=== PATIENT | female | born 2000 | race Caucasian/White ===

== ENCOUNTER 2023-04-28 05:50 | Emergency (ER) | payer BC, SELFPAY ==
[2023-04-28 05:57] VITALS: BP 137/100; PULSE 119; RESP 18; TEMP 36.8; O2SAT 100; BMI 24.0
[2023-04-28] MEDS: ACETAMINOPHEN 500 MG TABLET 1000 MG PO (06:43)
[2023-04-28] MEDS: predniSONE 10 MG TABLET 20 MG PO (06:43)
[2023-04-28 06:46] VITALS: BP 125/84; PULSE 99; RESP 18; TEMP 36.8; O2SAT 100
--- NOTE | 2023-04-28 06:47 | ED.GENADULT ---
HPI - General Adult General Chief complaint: Unspecified Complaint, Adult Stated complaint: Cant move L side of face Time Seen by Provider: 04/28/23 05:54 Source: patient Mode of arrival: ambulatory Limitations: no limitations History of Present Illness HPI narrative: 22-year-old female reports mild upper respiratory infection symptoms with nasal congestion and postnasal drip for the past 5 days. May have had a low-grade fever but was not measuring her temperature at home. Positive sick contact at home. Patient reporting that she became concerned this morning that she started having left ear pain upon awakening that radiated down into the jaw. No difficulty with facial movements, swallowing or speech. She is uncertain what this could be from. 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 She is uncertain if she could have an ear infection or if this is related to her TMJ pain. There was no fever. There is no injury or trauma. She did not try taking any medication to help with her pain. There is no drainage from the ear. She did not attempt to make an appointment to be seen in the clinic or urgent care. No difficulty breathing. Past medical history benign per her report. Her only home medication is p.r.n. ibuprofen. She is a smoker. ROS notable for the HEENT in generalized symptoms as above, otherwise denies times 12 systems. Related Data Previous Rx's Medication Instructions Recorded prednisone 20 mg tablet 20 mg PO DAILY #3 tabs 04/28/23 Allergies Allergy/AdvReac Type Severity Reaction Status Date / Time No Known Drug Allergies Allergy Verified 10/05/22 16:25 [facility] Social History Smoking Status: Never smoker Do you use any of these nicotine containing products: None How often do you have a drink containing alcohol: never AUDIT-C Alcohol total score: 0 Non-prescribed substance use: denies use Exam Const: Vital Signs, click to edit/add: Vital Signs - 24 hr 04/28/23 05:57 04/28/23 06:46 Temperature 98.3 F 98.3 F Pulse Rate [Pulse Oximeter] 119 H 99 Respiratory Rate 18 18 Blood Pressure [Ri ght Upper Arm] 137/100 H 125/84 Pulse Oximetry 100 100 Oxygen Delivery Me thod Room Air Room Air Documenting provider has reviewed patient's vital signs: yes Common normals: no apparent distress and alert Other: Mildly anxious and fair insight. Does not appear intoxicated or impaired any way. HENMT: Common normals: normocephalic Head and scalp: normocephalic Face and sinus: normal facial exam Other: She is clearly moving her face normally and symmetrically with absolutely no deficits. No sensory deficits on exam of the face either. Nose with some minimal clear mucus rhinorrhea. Oropharynx with minimal postnasal drip, clear. No tonsillar enlargement, moist membranes. Right TM and canal normal. Left TM with mildly injected ear drum and slight skew Ng but not complete loss of light reflex. No obvious effusion. Tender on exam on the left ear. Left jaw opens and closes normally but reports tenderness at the TMJ area, no crepitus. Eye: Common normals: conjunctivae normal General eye: normal appearance of both eyes Conjunctiva: conjunctiva(e) normal Neck & C-Spine: Common normals: full ROM and no lymphadenopathy Resp: Common normals: normal respiratory effort and clear to auscultation bilaterally Effort & inspection: able to speak in complete sentences Auscultation: clear to auscultation bilaterally Cardio: Common normals: regular rate, regular rhythm, S1 normal heart sound, S2 normal heart sound and no murmurs Rate: regular rate Rhythm: regular rhythm Heart sounds: S1 normal and S2 normal Neuro: Common normals: CN's II-XII intact bilaterally Sensorium/orientation: alert Speech: speech normal Gait (neuro): normal gait Motor exam: strength 5/5 throughout and no movement abnormalities noted Psych: Mood and affect: euthymic mood Insight: fair Judgement: fair Skin: Common normals: no rashes or lesions noted General skin exam: no rashes or lesions noted Course Course ED Course: Referred facial pain in the setting of mild ear infection. No evidence on exam to suggest stroke, history not suggestive of intracranial hemorrhage, facial nerve palsy, meningitis, severe sinus infection, dental injury or other significant pathology. Counseled patient on ear infection, most likely viral. She is also young enough to have been vaccinated against pneumococcal disease. Recommended a 3 day course of prednisone, Tylenol and ibuprofen for pain control, warm compresses and conservative management. Hearing should gradually improve as the ear infection clears. Two week follow-up with primary care if symptoms have not resolved. Alarm symptoms reviewed that would warrant ED presentation, she verbalizes understanding and agreement. Vital Signs Vital signs: Initial Vital Signs Temperature 98.3 F 04/28/23 05:57 Temperature Source Temporal Artery Scan 04/28/23 05:57 Pulse Rate 119 H 04/28/23 05:57 Respiratory Rate 18 04/28/23 05:57 Blood Pressure 137/100 H 04/28/23 05:57 Blood Pressure Mean 112 H 04/28/23 05:57 Blood Pressure Position Sitting 04/28/23 05:57 Pulse Oximetry 100 04/28/23 05:57 Oxygen Delivery Method Room Air 04/28/23 05:57 Vital Signs Temperature 98.3 F 04/28/23 05:57 Pulse Rate 119 H 04/28/23 05:57 Respiratory Rate 18 04/28/23 05:57 Blood Pressure 137/100 H 04/28/23 05:57 Pulse Oximetry 100 04/28/23 05:57 Oxygen Delivery Method Room Air 04/28/23 05:57 Temperature 98.3 F 04/28/23 06:46 Pulse Rate 99 04/28/23 06:46 Respiratory Rate 18 04/28/23 06:46 Blood Pressure 125/84 04/28/23 06:46 Pulse Oximetry 100 04/28/23 06:46 Oxygen Delivery Method Room Air 04/28/23 06:46 Medications Administered Medications: Generic Name Dose Route Start Last Admin Trade Name Freq PRN Reason Stop Dose Admin Acetaminophen 1,000 mg 04/28/23 06:39 04/28/23 06:43 Acetaminophen 500 Mg Tablet PO 04/28/23 06:40 1,000 mg ONCE ONE Administration Prednisone 20 mg 04/28/23 06:39 04/28/23 06:43 Prednisone 10 Mg Tablet PO 04/28/23 06:40 20 mg ONCE ONE Administration Discharge Plan Discharge Clinical Impression: Viral ear infection Patient Disposition: Home w/ Parent or Adult Condition: Stable Instructions: Ear Infection (ED) Additional Instructions: As we discussed, your left ear has some mild inflammation suggestive of a viral infection. This is very unlikely to be caused by a bacterial infection. Antibiotics are not likely to be helpful. I recommend a 3 day course of prednisone, a common anti-inflammatory medication. There are no signs of stroke or any other dangerous cause for your nerve pain today. This is likely related to the mild ear infection. I recommend Tylenol 1000 mg every 6 hours for pain. You may also take ibuprofen 600 mg every 6 hours for pain. If the pain is bothersome at night, consider using [id number] sleep aid such as melatonin 10 mg and/or Benadryl 25-50 mg at bedtime to help with sleep. Warm compresses on the ear may be helpful as well. I have given you a work note for today. If you start noticing a lot of drainage from the ear, the eardrum has likely ruptured and you should be re-evaluated in the clinic or urgent care within 24 hours. You would need to start some special ear drops. Otherwise, the hearing should return once the ear infection heals within the next couple of weeks. If it has not returned in 2 weeks, please make a follow-up appointment with your primary care provider. It is okay to use [id number] decongestants, these may be helpful also. I sent a prescription for prednisone, the anti-inflammatory medicine that you will take again this afternoon between 3 and 5:00 p.m.. You will then take a dose on the mornings of Monday and Monday to complete therapy. If you have stroke-like symptoms, severe headache come the need by fever and or other significant worsening, please come back to the emergency department Activity Level: Activity as Tolerated Discharge Diet: Regular Prescriptions: New prednisone 20 mg tablet 20 mg PO DAILY Qty: 3 0RF Follow Up/Referrals: Trixie Crowley PA-C [Primary Care Provider] - Stand Alone Forms: [facility] Info Instructions
== END 2023-04-28 07:08 | disposition home or self-care (01) ==
PROVIDERS: Emergency Provider Family Medicine; PCP Physician Assistant Medical
DX: H60.8X2 Other otitis externa, left ear (principal)
CPT/HCPCS: 87631; 99283; A9270; J7512

== ENCOUNTER 2024-01-19 08:01 | Outpatient (CLI) | payer OTHER, SELFPAY ==
--- NOTE | 2024-01-19 08:15 | CRLHL7_ITS ---
For Patients: As a result of the Cures Act, medical imaging exams and procedure reports are released immediately into your electronic medical record. You may view this report before your referring provider. If you have questions, please contact your health care provider. INDICATION: First trimester scan, establish dates. COMPARISON: None. TECHNIQUE: Real-time goel-scale imaging of the pelvis was performed. FINDINGS: Sonographic imaging demonstrates a single living intrauterine gestation. The embryo demonstrates a regular cardiac rate measuring 165 beats per minute. The embryo`s crown-rump length measurement of 1.7 cm corresponds to a gestational age of 8 weeks 1 day with a sonographic due date of 08/29/2024. There is a normal-appearing yolk sac. Umbilical cord cyst is present measuring 4 x 3 x 3 millimeters. The cervix is closed. The myometrium appears normal. The ovaries are of normal size. Corpus luteal cyst left ovary. There are no suspicious fluid collections noted in the cul-de-sac. IMPRESSION: Single living intrauterine with sonographic gestational age 8 weeks 1 day and sonographic due date 08/29/2024. 4 x 3 x 3 millimeter umbilical cord cyst. Follow-up in 2-3 weeks could be considered. Dictated by Louie Merlos MD @ 01/19/2024 9:12:40 AM (Electronically Signed)
== END 2024-01-19 08:02 | disposition home or self-care (01) ==
LOC: US 08:02
PROVIDERS: PCP Physician Assistant Medical; Visit Provider Registered Nurse
DX: Z34.91 Encounter for supervision of normal pregnancy, unspecified, first trimester (principal); Z3A.08 8 weeks gestation of pregnancy
CPT/HCPCS: 76817

== ENCOUNTER 2024-01-19 09:12 | Outpatient (CLI) | payer OTHER, SELFPAY ==
[2024-01-19 12:34] LABS: Chlamydia DNA Amplified* NOT DETECTED (No Detected); GC DNA Amplified* NOT DETECTED (No Detected)
== END 2024-01-19 09:13 | disposition home or self-care (01) ==
PROVIDERS: PCP Physician Assistant Medical; Visit Provider Registered Nurse
DX: Z34.01 Encounter for supervision of normal first pregnancy, first trimester (principal); Z67.10 Type A blood, Rh positive
CPT/HCPCS: 86592; 86703; 86704; 86706; 86762; 86787; 86803; 86850; 86900; 86901; 87086; 87340; 87491; 87591; 87624; 87625; 88141; 88142

== ENCOUNTER 2024-04-12 10:18 | Outpatient (CLI) | payer SELFPAY ==
--- NOTE | 2024-04-12 10:15 | CRLHL7_ITS ---
For Patients: As a result of the Century Cures Act, medical imaging exams and procedure reports are released immediately into your electronic medical record. You may view this report before your referring provider. If you have questions, please contact your health care provider. INDICATION: Evaluate anatomy. COMPARISON: 01/19/2024 TECHNIQUE: Real time goel scale imaging of the fetus was performed as well as color Doppler analysis of the umbilical vessels. FINDINGS/IMPRESSION: Sonographic imaging demonstrates a single living intrauterine gestation. Fetus demonstrates a regular cardiac rate of 134 beats per minute. Fetus has a vertex position. The placenta lies posteriorly without evidence of placenta previa. Edge of the placenta is 3.1 cm from the internal cervical os. Amniotic fluid volume appears normal. Single deepest vertical pocket: 3.9 cm. The cervix is closed and measures 3.6 cm in length. The composite ultrasound gestational age is calculated at 21 weeks 1 day with an estimated sonographic due date of 08/22/2024. The estimated weight is 360 grams which lies at the 67th %. The following biometric measurements were obtained: Biparietal diameter: 4.9 cm/20 weeks 5 days 73rd% Head circumference: 18.5 cm/20 weeks 6 days 73rd% Abdominal circumference: 15.6 cm/20 weeks 5 days 65th% Femur length: 3.3 cm/20 weeks 1 day 43rd% The HC/AC ratio measures: 1.18 range (1.06-1.25) On anatomic survey, there is a normal appearance of the cerebral ventricles, cavum septi pellucidi, cisterna magna and cerebellum. The nose, lips, and facial profile appear normal. The cervical, thoracic and lumbar spine are well visualized and appear normal. There is a normal four-chamber heart view and the left and right ventricular outflow tracts appear normal. The diaphragm and stomach appear normal. The kidneys and bladder also appear normal. There is a normal three-vessel cord and cord insertion site. The four extremities appear normal. Dictated by Louie Merlos MD @ 04/12/2024 11:46:28 AM (Electronically Signed)
== END 2024-04-12 10:19 | disposition home or self-care (01) ==
PROVIDERS: PCP Physician Assistant Medical; Visit Provider Obstetrics & Gynecology
DX: Z34.92 Encounter for supervision of normal pregnancy, unspecified, second trimester (principal); Z3A.21 21 weeks gestation of pregnancy
CPT/HCPCS: 76805

== ENCOUNTER 2024-06-07 10:57 | Outpatient (CLI) | payer BC, SELFPAY | END 2024-06-07 10:58 | disposition home or self-care (01) | LOC: NFLDREF 06-15 14:04 | PROVIDERS: PCP Physician Assistant Medical; Referring Provider Physician Assistant Medical; Visit Provider Obstetrics & Gynecology | DX: Z34.03 Encounter for supervision of normal first pregnancy, third trimester (principal) | CPT/HCPCS: 86592 ==

== ENCOUNTER 2024-07-19 11:37 | Outpatient (CLI) | payer BC, SELFPAY ==
--- NOTE | 2024-07-19 11:30 | CRLHL7_ITS ---
For Patients: As a result of the Century Cures Act, medical imaging exams and procedure reports are released immediately into your electronic medical record. You may view this report before your referring provider. If you have questions, please contact your health care provider. OB ULTRASOUND BIOPHYSICAL PROFILE FOLLOW-UP LIMITED, 07/19/2024 CLINICAL HISTORY: High blood pressure. COMPARISON: None. TECHNIQUE: Real time goel scale imaging of the fetus was performed transabdominal. FINDINGS: KIKO by US: 08/29/2024. GA: 34 weeks 1 day. GESTATION: Single. CERVIX: Not visualized. POSITIONING: Vertex. AMNIOTIC FLUID: 6.4 cm SDP. BIOPHYSICAL PROFILE: Gross Body Movements: 2 Tone: 2 Respiratory Activity: 2 Amniotic Fluid: 2 Total Score: 8 PLACENTA: Technique: TA. Placenta Position: Posterior. DOPPLERS: Heart Rate: 150 bpm. BIOMETRY: BPD: 8.8 cm, 35 weeks 3 days. 83% HC: 32.7 cm, 37 weeks 1 day. 85% AC: 30.7 cm, 34 weeks 5 days. 69% FL: 6.6 cm, 34 weeks 0 days. 35% IMPRESSION: 1. Normal biophysical profile score of 8/8. 2. Sonographic gestational age 35 weeks 2 days and sonographic due date 08/21/2024. Sonographic gestational age is 8 days ahead of the clinical age. 3. Estimated weight is 64th percentile. Abdominal circumference 69th percentile. Louie Merlos M.D. Diagnostic Radiologist [email or web address] Transcribed: 11:32 am DW/Dictated by: Louie Merlos MD @ 07/21/2024 8:49:00 PM (Electronically Signed)
== END 2024-07-19 11:38 | disposition home or self-care (01) ==
LOC: US 11:38
PROVIDERS: PCP Physician Assistant Medical; Visit Provider Obstetrics & Gynecology
DX: O13.3 Gestational [pregnancy-induced] hypertension without significant proteinuria, third trimester (principal); O36.63X0 Maternal care for excessive fetal growth, third trimester, not applicable or unspecified; Z3A.34 34 weeks gestation of pregnancy
CPT/HCPCS: 76816; 76819; 82565; 82570; 82728; 84156; 84450; 84460; 84520; 84550

== ENCOUNTER 2024-07-23 09:57 | Outpatient (CLI) | payer BC, SELFPAY | END 2024-07-23 09:58 | disposition home or self-care (01) | LOC: NFLDREF 07-24 06:48 | PROVIDERS: PCP Physician Assistant Medical; Referring Provider Physician Assistant Medical; Visit Provider Obstetrics & Gynecology | DX: O14.93 Unspecified pre-eclampsia, third trimester (principal); Z3A.34 34 weeks gestation of pregnancy | CPT/HCPCS: 82570; 84156 ==

== ENCOUNTER 2024-07-26 09:51 | Outpatient (CLI) | payer BC, SELFPAY ==
--- NOTE | 2024-07-26 10:00 | CRLHL7_ITS ---
For Patients: As a result of the Cures Act, medical imaging exams and procedure reports are released immediately into your electronic medical record. You may view this report before your referring provider. If you have questions, please contact your health care provider. OB ULTRASOUND LMP: 11/13/2023. KIKO by US: 08/29/2024. GA: 35 w, 1 d Single. Comparison: 07/19/2024, 04/12/2024, 01/18/2025. INDICATION: Pre-eclampsia. TECHNIQUE: Real time grayscale imaging of the fetus was performed. Transabdominal. CERVIX: Not visualized. POSITIONING: Vertex. AMNIOTIC FLUID: 6.0 cm. SDP (N: greater than 2 x 1 cm) BIOPHYSICAL PROFILE: 2: Gross body movements 2: tone 2: Respiratory activity 2: Amniotic fluid SDP (N: greater than 2 x 1 cm) 8/8: Total score PLACENTA: Technique: Transabdominal. PLACENTA POSITION: Posterior. DOPPLER: heart rate: 152 bpm. IMPRESSION: Normal biophysical profile score 8/8. Louie Merlos M.D. Diagnostic Radiologist [email or web address] GIFTY/max santana/Dictated by: Louie Merlos MD @ 07/26/2024 11:31:00 AM (Electronically Signed)
== END 2024-07-26 09:52 | disposition home or self-care (01) ==
LOC: US 09:52
PROVIDERS: PCP Physician Assistant Medical; Referring Provider Physician Assistant Medical; Visit Provider Obstetrics & Gynecology
DX: O14.93 Unspecified pre-eclampsia, third trimester (principal); Z3A.35 35 weeks gestation of pregnancy
CPT/HCPCS: 76819; 82565; 82570; 84156; 84450; 84460; 84520; 84550

== ENCOUNTER 2024-08-02 12:16 | Outpatient (CLI) | payer BC, SELFPAY ==
--- NOTE | 2024-08-02 12:15 | CRLHL7_ITS ---
For Patients: As a result of the Century Cures Act, medical imaging exams and procedure reports are released immediately into your electronic medical record. You may view this report before your referring provider. If you have questions, please contact your health care provider. INDICATION: Preeclampsia TECHNIQUE: Ultrasound OB pelvis transabdominal. Real-time goel-scale imaging of the fetus was performed with color Doppler and spectral Doppler analysis of the umbilical artery without stress testing. COMPARISON: 07/26/2024 FINDINGS: Sonographic imaging demonstrates a single living intrauterine gestation. Fetus demonstrates a regular cardiac rate of 142 beats per minute. Fetus has a cephalic orientation. The placenta lies posterior. Amniotic fluid volume appears normal with a MVP of 7.6 cm. breathing movements, motion, and tone were all observed. IMPRESSION: Single viable intrauterine with a biophysical profile 11/29. Dictated by Jean Carlos Morris MD @ 08/02/2024 12:51:20 PM (Electronically Signed)
== END 2024-08-02 12:17 | disposition home or self-care (01) ==
LOC: US 12:16
PROVIDERS: PCP Physician Assistant Medical; Visit Provider Obstetrics & Gynecology
DX: O14.90 Unspecified pre-eclampsia, unspecified trimester (principal)
CPT/HCPCS: 76819; 82565; 82570; 84156; 84450; 84460; 84520; 84550; 87081; 87653

== ENCOUNTER 2024-08-08 11:30 | Outpatient (RCR) | payer BC, SELFPAY ==
--- NOTE | 2024-07-23 13:36 | ONC.NURNOTE ---
Diagnosis: Iron Deficiency Anemia in
--- NOTE | 2024-07-23 13:57 | URNOTE ---
Prior auth is not required for Mera ([id number]) per . Conf #[id number]
[2024-07-25 11:16] VITALS: BP 125/80; PULSE 88; RESP 18; TEMP 36.3; O2SAT 99
[2024-07-25 12:09] VITALS: BP 117/73; PULSE 88; RESP 16; TEMP 36.1; O2SAT 98
[2024-07-25 12:41] VITALS: BP 120/80; PULSE 81; RESP 16; TEMP 36.4; O2SAT 98
[2024-07-30 11:18] VITALS: BP 119/79; PULSE 90; RESP 16; TEMP 36.4; O2SAT 98
[2024-07-30] MEDS: SODIUM CHLORIDE 0.9 % (FLUSH) 10 ML SYRINGE IVF (11:44)
[2024-07-30 12:04] VITALS: BP 121/77; PULSE 86; RESP 16; O2SAT 98
[2024-08-01 11:19] VITALS: BP 120/80; PULSE 87; RESP 18; TEMP 36.1; O2SAT 99
[2024-08-01] MEDS: SODIUM CHLORIDE 0.9 % (FLUSH) 10 ML SYRINGE IVF ×2 (11:38→11:59)
[2024-08-01 11:59] VITALS: BP 118/76; PULSE 98; RESP 16; O2SAT 98
[2024-08-01 12:29] VITALS: BP 107/72; PULSE 89; RESP 16; O2SAT 97
[2024-08-06 12:15] VITALS: BP 123/84; PULSE 95; RESP 16; TEMP 36.7; O2SAT 98
[2024-08-06] MEDS: SODIUM CHLORIDE 0.9 % (FLUSH) 10 ML SYRINGE IVF (12:33)
[2024-08-06 12:53] VITALS: BP 115/79; PULSE 83; RESP 16; O2SAT 98
[2024-08-06 13:19] VITALS: BP 117/81; PULSE 95; RESP 16; TEMP 36.3; O2SAT 98
[2024-08-08 11:45] VITALS: BP 128/66; PULSE 84; RESP 21; TEMP 36.1; O2SAT 99
[2024-08-08] MEDS: SODIUM CHLORIDE 0.9 % (FLUSH) 10 ML SYRINGE IVF (12:12)
[2024-08-08 13:00] VITALS: BP 120/85; PULSE 86; RESP 14; TEMP 36.1; O2SAT 98
== END 2025-01-21 23:59 | disposition home or self-care (01) ==
LOC: CCIC 11:30
PROVIDERS: PCP Physician Assistant Medical; Referring Provider Physician Assistant Medical; Visit Provider Clinical Nurse Specialist
DX: O99.013 Anemia complicating pregnancy, third trimester (principal); D50.9 Iron deficiency anemia, unspecified
CPT/HCPCS: 96365; J1756; J7050

== ENCOUNTER 2024-08-09 13:13 | Outpatient (CLI) | payer BC, SELFPAY ==
--- NOTE | 2024-08-09 13:00 | CRLHL7_ITS ---
For Patients: As a result of the Century Cures Act, medical imaging exams and procedure reports are released immediately into your electronic medical record. You may view this report before your referring provider. If you have questions, please contact your health care provider. OB ULTRASOUND BIOPHYSICAL PROFILE KIKO by US: 08/29/2024. GA: 37 w, 1 d. Single. INDICATION: Pre-existing hypertension. TECHNIQUE: Real time goel scale imaging of the fetus was performed. Transabdominal. CERVIX: Not visualized. POSITIONING: Vertex. AMNIOTIC FLUID: 6.1 cm. SDP (N: greater than 2 x 1 cm) BIOPHYSICAL PROFILE: Gross body movements: 2. tone: 2. Respiratory activity: 0. Amniotic fluid: 2. (SDP N: greater than 2 x 1 cm) Total score: 6. PLACENTA: Technique: Transabdominal. PLACENTA POSITION: Posterior. DOPPLER: heart rate: 144 bpm. IMPRESSION: Biophysical profile 68. Absent respiratory activity. Louie Merlos M.D. Diagnostic Radiologist [email or web address] SP/Dictated by: Louie Merlos MD @ 08/09/2024 5:46:00 PM (Electronically Signed)
== END 2024-08-09 13:14 | disposition home or self-care (01) ==
LOC: US 13:13
PROVIDERS: PCP Physician Assistant Medical; Visit Provider Obstetrics & Gynecology
DX: O10.913 Unspecified pre-existing hypertension complicating pregnancy, third trimester (principal); Z3A.37 37 weeks gestation of pregnancy
CPT/HCPCS: 76819; 82565; 82570; 84156; 84450; 84460; 84520; 84550

== ENCOUNTER 2024-08-13 15:02 | Outpatient (CLI) | payer BC, SELFPAY ==
[2024-08-13] VITALS (10 sets, daily range): BP systolic 116–129; BP diastolic 62–77; PULSE 71–91; O2SAT 97–98
[2024-08-13 15:49] LABS: Hematocrit 32.6 % (33.0-51.0); Hemoglobin* 10.2 gm/dL (12.0-16.0); Mean Corpuscular HGB Conc 31 gm/dL (32-36); Mean Corpuscular Hemoglobin 26 pg (26-34); Mean Corpuscular Volume 84 fL (80-100); Platelet Count* 274 K/uL (140-440); Red Blood Count 3.87 m/uL (4.00-5.20); White Blood Count* 8.45 K/uL (4.50-11.00)
[2024-08-13 15:54] LABS: Slide Review Reflex No
[2024-08-13 16:08] LABS: Blood Urea Nitrogen* 4 mg/dL (5-24); Creatinine* 0.4 mg/dL (0.5-1.5); Estimated Glomerular Filt Rate 143 ml/min
[2024-08-13 16:09] LABS: Alanine Aminotransferase* 20 U/L (4-35); Aspartate Amino Transferase* 28 U/L (12-35)
[2024-08-13 16:52] LABS: Total Protein Urine 13 mg/dL
[2024-08-13 16:53] LABS: Creatinine Urine 63.4 mg/dL; Protein Creatinine Ratio Urine 0.21 (0-0.19)
--- NOTE | 2024-08-13 17:49 | PC.OBNST ---
NST Note NST Note Start: 08/13/24 15:08 Freq: ONCE Status: Discharge Protocol: Document 08/13/24 15:08 [facility] (Rec: 08/13/24 17:49 [facility] [id number]) NST Note 1 Para (# of births) 0 EDC 08/29/24 Gestational Age In Weeks & Days 37 Weeks & 5 Days High Risk Factors High Blood Pressure - Preexisting Patient Presented with Complaint(s) of Other Other Complaints Increased blood pressure in clinic, staff did not get a recheck, so patient was called by clinic staff to present to the Center for triage. Reactive Yes Appropriate for Gestational Age Yes RN Lily RN Date 08/13/24 Reactive Yes Appropriate for Gestational Age Yes RN John RN Date 08/13/24 OB NST charge Yes Complete NST Note via Write Note Yes The provider's electronic signature indicates the NST is reactive/appropriate for gestational age. *Note to provider: If an addendum is required, open the patient's chart and click on the note under the Nurse/Allied Health tab.
== END 2024-08-13 17:40 | disposition home or self-care (01) ==
LOC: OB OUT 15:02 → OB 17:28
PROVIDERS: PCP Physician Assistant Medical; Visit Provider Obstetrics & Gynecology
DX: O10.913 Unspecified pre-existing hypertension complicating pregnancy, third trimester (principal); Z3A.37 37 weeks gestation of pregnancy
CPT/HCPCS: 36415; 59025; 82565; 82570; 83735; 84156; 84450; 84460; 84520; 85027; G0463

== ENCOUNTER 2024-08-18 16:05 | Inpatient (IN) | payer BC, SELFPAY ==
[2024-08-18] VITALS (19 sets, daily range): BP systolic 117–131; BP diastolic 72–88; PULSE 67–94; RESP 16–18; TEMP 36.6–36.8; O2SAT 98–100; BMI 37.1
--- NOTE | 2024-08-18 16:34 | W.PM.LDBA ---
Subjective History of Present Illness Date Seen: 08/18/24 Narrative: Patient is being admitted to Labor and Delivery for induction of labor for indication of chronic hypertension complicating . She is a 24 year old at 38 3/7 weeks gestation. Upon admission, she noted onset of watery discharge 2 hours prior to arrival. Her full history and physical was dictated by Dr. Poe on 08/18/24. Please see this for details. Specific Issues/Plans G 1 P 0 : Gerard. Baby: Boy! Gerard [place]. Sister: Suzie Danielson NIPT: low risk # New HTN at 34 weeks (07/19) - suspect Chronic HTN due to elevated BPs outside of on EMR review 24 hour urine = 63 mg protein, HELLP labs normal Twice weekly testing; BPP alternating with NST (ordered) Weekly labs (normal 08/02) IOL 38w0d - 39w6d if no meds, 37 weeks if meds required or signs/sx superimposed preE # History of anxiety, depression, bipolar disorder. States she briefly took medication in 2017, but the medications did not work. Denies current concerns with depression. She is struggling with anxiety, but is not interested in medication or therapy at this time. # Recommend daily low dose aspirin at 12 weeks due to first and sister with history of preeclampsia. # Anemia at 28 weeks, Hb 10.6 Begin iron supplementation QOD Repeat at 34 weeks: 10.2. Iron infusions ordered H&P: 08/09/24, Lui Imagin04/12/24: anatomy scan; cervical length 3.6 cm, posterior placenta without previa, 3 vessel cord, SDP 3.9, normal anatomy, EFW 67.4%, AC 64.5%. 07/19: 34 1/7 weeks. BPP 8/8. cephalic, SDP 6.4, EFW 64%, AC 69%, all growth parameters normal. 08/16/24: BPP 8/8, EFW 3668 g or 8 lb 1 oz (83%), BPD 43%, HC 89%, AC >97%, FL 5%, SDP 7.2 cm, vertex. Vaccinations: Flu: 01/19/2024 Covid: Not vaccinated. Recommended. Declined. Tdap: 06/21/24 32 week mental health:07/05 Last pap: @ 1st OB OB - Problem Based A/P Additional Plan (1) Chronic hypertension affecting : Status: Acute Plan 38 weeks, 3 days gestation with chronic hypertension, not requiring medication Reassuring status; category 2 currently for one variable deceleration GBS negative Favorable cervix; Ceballos score = 7 SROM around 3 PM today Delivery/Labor/Induction Plan Induction method: per pitocin protocol OB Exam Physical Exam Vital signs: Physical exam: General: No acute distress Psych: Alert and oriented x3, full affect HEENT: Normocephalic, atraumatic Heart: Regular rate and rhythm, no murmur rub or gallop Lungs: Clear to auscultation bilaterally Abdomen: Soft, nontender, gravid, cephalic lie Lower extremities: No edema or erythema Pelvic exam: Cervix 2 / 70 / -1 / midposition / moderate consistency AmniSure positive tracing: Baseline 130 / accelerations present / one brief variable deceleration to 90s / moderate variability. contractions irregular
[2024-08-18 16:43] LABS: Amnisure Rom* POSITIVE
[2024-08-18 17:18] LABS: Basophils Absolute Auto 0.02 K/uL (0.00-0.30); Basophils Percent Auto 0.2 % (0.0-3.0); Eosinophils Absolute Auto 0.02 K/uL (0.00-0.50); Eosinophils Percent Auto 0.2 % (0.0-7.0); Hematocrit 33.1 % (33.0-51.0); Hemoglobin* 10.8 gm/dL (12.0-16.0); Immature Granulocytes Abs Auto 0.04 K/uL (0.00-0.30); Immature Granulocytes Pct Auto 0.5 %; Lymphocytes Percent Auto 12.7 % (20-44); Mean Corpuscular HGB Conc 33 gm/dL (32-36); Mean Corpuscular Hemoglobin 27 pg (26-34); Mean Corpuscular Volume 82 fL (80-100); Neutrophils Percent Auto 79.4 % (42.0-72.0); Platelet Count* 277 K/uL (140-440); RDW Coefficient of Variation % 17.5 % (11.5-15.5); Red Blood Count 4.03 m/uL (4.00-5.20); White Blood Count* 8.67 K/uL (4.50-11.00)
[2024-08-18 17:23] LABS: Slide Review Reflex No
[2024-08-18 17:35] LABS: Appearance Urine Clear (Clear); Bilirubin Urine Negative (Negative); Blood Urine Negative (Negative); Color Urine Yellow (Yellow); Glucose Urine Negative (Negative); Ketones Urine Negative (Negative); Leukocyte Esterase Urine Negative (Negative); Nitrite Urine Negative (Negative); Protein Urine Negative (Negative); Specific Gravity Urine 1.015 (1.000-1.030); Urobilinogen Urine 0.2 (0.2-1.0)
[2024-08-18 17:42] LABS: Alanine Aminotransferase* 16 U/L (4-35); Aspartate Amino Transferase* 25 U/L (12-35); Blood Urea Nitrogen* 8 mg/dL (5-24); Creatinine* 0.5 mg/dL (0.5-1.5); Est. Creatinine Clearance* 151.11; Estimated Glomerular Filt Rate 135 ml/min
[2024-08-18 17:49] LABS: Creatinine Urine 78.1 mg/dL; Protein Creatinine Ratio Urine 0.09 (0-0.19); Total Protein Urine 7 mg/dL
[2024-08-18] MEDS: LACTATED RINGERS 1000 ML 1,000 ML 125 ML IV (17:58)
[2024-08-18] MEDS: OXYTOCIN 30 unit/500 ML in NS 30 UNIT/500 ML BAG IVPB (17:59)
[2024-08-18] MEDS: LACTATED RINGERS 1000 ML 1,000 ML 925 ML IV (23:27)
[2024-08-18] MEDS: BUPIVACAINE 0.25% PF 10 ML 10 ML ML EPIDURAL (23:46)
[2024-08-18] MEDS: ROPIVACAINE 0.2% 100 ml 100 ML 12 MG EPIDURAL (23:46)
--- NOTE | 2024-08-18 23:58 | PM.ANBPRC ---
[facility] Medical History (Updated 07/26/24 @ 16:57 by Puja Poe MD) Depression ?F32.A - Depression, unspecified (ICD-10) Family History Grandfather High cholesterol Grandmother High cholesterol Breast cancer Aunt Asthma Sister Preeclampsia Social History Narrative: Was vaping prior to . What is your current living situation?: I presently have a place to live Problems where you live: no known problems In the past 12 months, utilities in danger of being shut off: no In past 12 months, lack of transportation kept you from medical appts, meetings, work, or getting things needed for daily living: no In the past 12 mos, have been you worried that your food would run out before you had money to buy more?: never true In the past 12 mos, the food you bought just didn't last and you didn't have money to buy more?: never true Smoking Status: Former smoker Do you use any of these nicotine containing products: None How often do you have a drink containing alcohol: never AUDIT-C Alcohol total score: 0 Non-prescribed substance use: denies use How often does anyone, including family, friends and others, physically hurt you: never How often does anyone, including family, friends and others, insult or talk down to you: never How often does anyone, including family, friends and others, threaten you with harm: never How often does anyone, including family, friends and others, scream or curse at you: never Meds Home Medications and Allergies Home Medications ?Medication ?Instructions ?Recorded ?Confirmed ?Type docosahexaenoic acid 200 mg mg PO 01/19/24 08/16/24 History capsule ( DHA) Allergies Allergy/AdvReac Type Severity Reaction Status Date / Time No Known Drug Allergies Allergy Verified 08/18/24 17:09 Results Labs Labs: Laboratory Results - last 24 hr 08/18/24 08/18/24 08/18/24 16:30 17:10 17:20 WBC 8.67 RBC 4.03 Hgb 10.8 L Hct 33.1 MCV 82 MCH 27 MCHC 33 RDW Coeff of Rajiv 17.5 H Plt Count 277 Neut % (Auto) 79.4 H Lymph % (Auto) 12.7 L Schleicher % (Auto) 7.0 Eos % (Auto) 0.2 Baso % (Auto) 0.2 Neut # (Auto) 6.90 Lymph # (Auto) 1.10 Schleicher # (Auto) 0.60 Eos # (Auto) 0.02 Baso # (Auto) 0.02 Abs Immat Gran (auto) 0.04 Imm/Tot Granulo (auto) 0.5 BUN 8 Creatinine 0.5 Estimated Creat Clear 151.11 Estimated GFR 135 AST 25 ALT 16 Urine Color Yellow Urine Appearance Clear Urine pH 7.0 Ur Specific [place] 1.015 Urine Protein Negative Urine Glucose (UA) Negative Urine Ketones Negative Urine Blood Negative Urine Nitrite Negative Urine Bilirubin Negative Urine Urobilinogen 0.2 Ur Leukocyte Esterase Negative Urine Creatinine 78.1 Protein/Creatinin Ratio 0.09 Urine Total Protein 7 Membrane Rupture POSITIVE Blood Type A Positive Antibody Screen NEGATIVE Vital Signs Vital Signs: Last Vital Signs Temp 97.8 F 08/18/24 23:02 Pulse 81 08/18/24 23:57 Resp 18 08/18/24 23:02 BP 119/74 08/18/24 23:57 Pulse Ox 98 08/18/24 23:58 Weight: 98.203 kg Height: 162.56 cm Anesthesia Procedures Epidural Insertion Patient Location: OB Start Time: 23:30 Stop Time: 00:15 Start Date: 08/18/24 Stop Date: 08/18/24 Reason for Block: procedure for pain Patient Position: sitting Performed By: Larry Becerra Preanesthetic Checklist: IV checked, risks and benefits discussed, surgical consent, monitors and equipment checked, pre-op evaluation, timeout performed and anesthesia consent Prep: chlorhexidine gluconate Monitoring: blood pressure monitoring, continuous pulse oximetry and heart rate Approach: midline Vertebral Space: lumbar (1-5) Epidural Technique: KIMO saline Needle Type: Tuohy needle Injection Technique: continuous catheter Needle gauge: 17 Needle Length (cm): 10 cm Needle Insertion Depth (cm): 6 Catheter Gauge: 19 Catheter Type: multi-orifice Catheter at skin depth (cm): 12 Test Dose Result: negative and lidocaine 1.5% with epinephrine 1 to 200,000
[2024-08-19] VITALS (151 sets, daily range): BP systolic 101–135; BP diastolic 56–103; PULSE 63–152; RESP 16–17; TEMP 36.4–36.9; O2SAT 90–100
[2024-08-19] MEDS: PHENYLEPHRINE 100 MCG/ML SYRINGE IVP (02:13)
[2024-08-19] MEDS: SODIUM CHLORIDE 0.9 % (FLUSH) 10 ML SYRINGE IVF (02:16)
[2024-08-19] MEDS: LACTATED RINGERS 1000 ML 1,000 ML 100 ML IV (02:34)
[2024-08-19] MEDS: CALCIUM CARBONATE 500 MG CHEW PO (03:11)
[2024-08-19] MEDS: ROPIVACAINE 0.2% 100 ml 100 ML 12 MG EPIDURAL (07:48)
[2024-08-19] MEDS: ACETAMINOPHEN 500 MG TABLET 1000 MG PO (09:19)
--- NOTE | 2024-08-19 09:49 | W.PM.VAGD1_ITS ---
Procedure Delivery date: 08/19/24 Procedure Done: Global Events: Chronic Hypertension and Prolonged Rupture of Membrane Intrapartal Events: Labor Augmentation Delivery augmentation: pitocin Delivery monitor: external FHT Route of delivery: Laceration description: Perineal - 2nd Degree Delivery repair: Vicryl Estimated blood loss (mL): 150 Anesthesia type: Epidural Disposition: floor Narrative: The patient is a 24 year-old admitted on 08/18/24 at 38 and 3/7 weeks gestation for IOL due to CHTN. However, upon presentation patient reported SROM at 0200 on 08/18/24 and found to be 2/70/0 on SVE. Pitocin started for augmentati on of labor. GBS negative Labor Analgesia: Epidural Pitocin: For augmentation of labor and active 3rd stage management SROM: 08/18/24 at 0200, with clear fluid Labor onset: 08/18/24 at 2300 Complete: 08/19/24 at 0724 Pushin08/19/24 at 0732 heart tones during second stage were cat II during with variables to 90s that spontaneously resolved after pushing cessation. At 0807 a viable male delivered in vertex OA presentation over intact via spontaneous vaginal delivery. The 's body was delivered in the usual manner without difficulty. The infant was placed on maternal abdomen. The cord was clamped and cut after a 30-60 second delay. The nose and mouth were bulb suctioned. weight: 3655 g. 8 at 1 minute and 9 at 5 minutes. Shoulder dystocia: No. Nuchal cord: No Placenta delivered spontaneously and complete at 0810 with a 3-vessel cord. Placenta examined and noted to be complete. Placenta was sent to pathology for diagnosis of CHTN. The cervix and vagina were inspected for lacerations, and 2nd degree laceration was noted. Laceration(s): 2nd degree, repaired with 2-0 vicryl in a continuos locking manner. Complications: None Estimated blood loss: 150 cc Cord gases: not indicated Sponge and needles counts are correct. Mother and were stable at the time of this note.
--- NOTE | 2024-08-19 13:26 | PM.ANPOST ---
Post Anesthesia Note Post Anesthesia Note Patient seen: Inpatient Respiratory Status: adequate Cardiovascular Status: adequate Mental Status: baseline Pain: adequate Temp: baseline Anesthetic awareness: N/A Complications: none Follow care: none
[2024-08-19] MEDS: DOCUSATE SODIUM 100 MG CAPSULE PO (14:08)
[2024-08-19] MEDS: IBUPROFEN 600 MG TABLET PO (14:09)
[2024-08-20 02:08] VITALS: BP 115/77; PULSE 79; RESP 16; TEMP 36.4; O2SAT 96
[2024-08-20 05:10] VITALS: BP 114/78; PULSE 78; RESP 16; TEMP 36.5; O2SAT 98
[2024-08-20] MEDS: IBUPROFEN 600 MG TABLET PO (05:20)
[2024-08-20 06:39] LABS: Hemoglobin* 9.2 gm/dL (12.0-16.0)
--- NOTE | 2024-08-20 08:33 | P.DS_ITS ---
DS: Providers Provider Date Seen: 08/20/24 Date of admission: 08/18/24 16:05 Primary care physician: Trixie Crowley PA-C Admitting Clinician: Odette Zavala MD Attending Physician on discharge: Eduin CARPENTER Date of Discharge: 08/20/24 DS: Diagnosis Discharge Diagnosis (1) care and examination of lactating mother: Status: Acute (2) Chronic hypertension affecting : Status: Acute (3) Bipolar disorder: Status: Acute (4) Second degree perineal laceration: Status: Acute Exam Narrative: Exam Narrative: GENERAL APPEARANCE:? normal affect, alert, no distress MOOD:? appropriate CHEST:? clear to auscultation HEART:? regular rate and rhythm ABDOMEN:? soft, non-tender the uterine fundus is 1 finger breadth below Umbilicus, Midline and is appropriate for the stage of recovery. PERINEUM:? mild edema of the perineum, there is a Perineal Laceration,? that is without erythema, or abnormal discharge. It is well approximated. EXTREMITIES:? normal and mild edema Const: Vital Signs, click to edit/add: Vital Signs - 24 hr 08/19/24 08:34 08/19/24 08:35 08/19/24 08:49 Temperature 97.9 F 98.1 F Pulse Rate 90 Pulse Rate [Pulse Oximeter] Respiratory Rate Blood Pressure 115/73 Blood Pressure [Le ft Arm] P[facility]ximetry [facility] 08:50 08/19/24 09:05 08/19/24 09:06 Temperature 97.9 F Pulse Rate 80 81 Pulse Rate [Pulse Oximeter] Respiratory Rate Blood Pressure 104/79 128/82 Blood Pressure [Le ft Arm] Pulse Oximetry [facility] 08/[facility]/24 09:14 08/19/24 09:16 08/19/24 09:19 Temperature Pulse Rate 88 Pulse Rate [Pulse Oximeter] Respiratory Rate Blood Pressure 134/81 Blood Pressure [Le ft Arm] Pulse Oximetry 97 99 [facility] 08/[facility] 09:24 08/19/24 09:29 08/19/24 09:34 Temperature Pulse Rate Pulse Rate [Pulse Oximeter] Respiratory Rate Blood Pressure Blood Pressure [Le ft Arm] Pulse Oximetry 98 98 99 [facility] 08/[facility]/24 09:35 08/19/24 09:39 08/19/24 09:44 Temperature Pulse Rate 68 Pulse Rate [Pulse Oximeter] Respiratory Rate Blood Pressure 121/82 Blood Pressure [Le ft Arm] Pulse Oximetry 99 100 Oxygen Delivery Me thod 08/19/24 09:49 08/19/24 09:51 08/19/24 09:54 Temperature Pulse Rate 73 Pulse Rate [Pulse Oximeter] Respiratory Rate Blood Pressure 134/76 Blood Pressure [Le ft Arm] Pulse Oximetry 100 100 Oxygen Delivery Me thod 08/19/24 09:59 08/19/24 10:04 08/19/24 10:09 Temperature Pulse Rate 85 Pulse Rate [Pulse Oximeter] Respiratory Rate Blood Pressure 135/68 Blood Pressure [Le ft Arm] Pulse Oximetry 100 100 100 Oxygen Delivery Me thod 08/19/24 10:14 08/19/24 10:19 08/19/24 10:24 Temperature Pulse Rate Pulse Rate [Pulse Oximeter] Respiratory Rate Blood Pressure Blood Pressure [Le ft Arm] Pulse Oximetry 100 100 99 Oxygen Delivery Me thod 08/19/24 10:29 08/19/24 10:34 08/19/24 10:39 Temperature Pulse Rate Pulse Rate [Pulse Oximeter] Respiratory Rate Blood Pressure Blood Pressure [Le ft Arm] Pulse Oximetry 99 98 99 Oxygen Delivery Me thod 08/19/24 10:39 08/19/24 10:40 08/19/24 10:44 Temperature 97.7 F Pulse Rate 76 Pulse Rate [Pulse Oximeter] Respiratory Rate Blood Pressure 127/72 Blood Pressure [Le ft Arm] Pulse Oximetry 100 Oxygen Delivery Me thod 08/19/24 14:16 08/19/24 17:40 08/19/24 21:30 Temperature 98.1 F 97.6 F 98.3 F Pulse Rate Pulse Rate [Pulse Oximeter] 69 75 90 Respiratory Rate 16 16 16 Blood Pressure Blood Pressure [Le ft Arm] 121/80 131/82 122/84 Pulse Oximetry 96 98 97 Oxygen Delivery Me thod Room Air Room Air Room Air 08/20/24 02:08 08/20/24 05:10 Temperature 97.6 F 97.7 F Pulse Rate Pulse Rate [Pulse Oximeter] 79 78 Respiratory Rate 16 16 Blood Pressure Blood Pressure [Le ft Arm] 115/77 114/78 Pulse Oximetry 96 98 Oxygen Delivery Me thod Room Air Room Air OB - DS: Summary Hospital Course Hospital Course: Yevett is a 24 y.o. G 1 P 1001 who was admitted to [facility] for IOL for chronic HTN.? She had a NVD that was complicated elevated BP, not in severe range. She has been normotensive since the delivery. She is not on chronic HTN meds. The patient feels well.? The pain is well controlled with current medications.?She normally takes 800 mg ibuprofen q 6 hours for TMJ as needed and would like the dose increased. She has no new complaints.? She is breast feeding and reports things are going poorly. The baby tends to bite and is causing bleeding. She agrees to meet with today. the patient has done well, but iron level is low. Iron every other day should be continued for a few weeks at least.? Vitals have been stable.? She has remained afebrile.? Has a good appetite, is tolerating a general diet.? She is voiding without difficulty.? She is passing gas and has had a bowel movement.? She is ambulating and denies any dizziness.? Has small amount of rubra lochia. She is planning condoms for prevention.? ?? Problems: issuues ?? plan:? Discharge home with baby.? Follow up in 2-3 days and 6 weeks.? , may see if needed? Hgb 9.2. Iron supplement ordered orally every other day? Chronic HTN? Labs WNL or stable with trending? Has a BP cuff at home.? Call for signs/symptoms of preeclampsia? Peripartum Data Infant delivery method: Vaginal Laceration description: Perineal - 2nd Degree Episiotomy description: None complications: none [place] Gender: Male Discharge Plan: Home Status at Discharge Overall status at discharge: patient is progressing back to baseline Time Spent with Patient Time attestation: Total time spent providing and/or coordinating discharge services: Time spent: Less than 30 minutes Discharge Plan Discharge Disposition: Home, Self-Care Date of Admission: 08/18/24 16:05 Attending Provider on Discharge: Kim Yin Consulting Providers: Khushi Stafford Primary Care Provider: Trixie Crowley Condition: Stable Anticipated Discharge Date/Time: 08/20/24 12:00 Discharge Medications: New acetaminophen 500 mg Tablet 1,000 mg PO Q6H PRNQty: 60 0RF docusate sodium 100 mg Capsule 100 mg PO BID PRNQty: 60 0RF ibuprofen 800 mg tablet 800 mg PO Q6H PRNQty: 60 0RF Continued DHA 200 mg capsule 200 mg PO DAILY Discharge Orders: Discharge Order (Routine); Ordered 08/20/24 Ordered By: Kim Yin Patient Education: OB Vaginal/Breast Feeding Additional Instructions: Discharge instructions were reviewed with the patient including signs and symptoms of infection and home going medications Nothing vaginally for 6 weeks: no tampons or intercourse Do not drive while taking narcotic pain medication(s) Off Work or School for 6 weeks Symptoms to report to doctor: * Bleeding that saturates more than one pad per hour * Passing clots larger than the size of a golf ball * Pain not relieved by prescribed medication * Fever above 100.4 degrees Fahrenheit * A foul vaginal odor * Difficulty in emotions, mood, and functions * Thoughts of hurting yourself and/or * Painful, reddened area in your breast * Any drainage, redness, or tenderness in your IV/epidural site * Severe headache that doesn't improve after taking medications * Changes in vision, including temporary loss of vision, blurred vision, and/or light sensitivity * Upper abdominal pain (usually under ribs on the right side) * Decrease in urination or painful, frequent urinating * Chest pain * Shortness of breath * Tenderness or pain with redness and/swelling in the calf(s) of your leg [facility] for [facility] BP check?08/23/24 Call with BP greater than or equal to 160/110 3 day visit: BP Check, discuss infant feeding concerns, review control options and screen for anxiety/depression. 6-week visit for an annual exam. consultation services are available to all mothers and babies for the first year after delivery.? To make an appointment, please call [phone]. For pain control of perineum, breast and pelvic pain, take 800 mg Ibuprofen every 6 hours as needed by mouth or 1000 mg acetaminophen (Tylenol) every 6 hours by mouth as needed. You can alternate these so you are taking something every 3 hours as needed. A heating pad can also be used for your abdomen or breasts. You may also take docusate sodium up to twice daily to soften your stools and help to prevent constipation. You may wean off of it when your stools return to normal.? Please continue taking iron supplement every other day to get your hemoglobin/iron levels increased. Activity Level: Activity as Tolerated and No strenuous activity Discharge Diet: Regular Follow Up Appointments: [facility] [Provider Group] Forms: [facility] Info Instructions
[2024-08-20 09:08] VITALS: BP 120/80; PULSE 100; RESP 16; TEMP 36.9; O2SAT 96
[2024-08-20 11:04] VITALS: BP 115/78; PULSE 97
[2024-08-20] MEDS: FERROUS SULFATE 325 MG TABLET PO (12:27)
[2024-08-20 14:35] VITALS: BP 127/85
[2024-08-20 19:53] LABS: Rapid Plasma Reagin (RPR) Non Reactive (Non Reactive)
== END 2024-08-20 14:55 | disposition home or self-care (01) | DRG 560 ==
PROVIDERS: Obstetrics & Gynecology; Admitting Provider Obstetrics & Gynecology; PCP Physician Assistant Medical; Visit Provider Obstetrics & Gynecology
DX: O10.92 Unspecified pre-existing hypertension complicating childbirth (principal); O42.02 Full-term premature rupture of membranes, onset of labor within 24 hours of rupture; Z37.0 Single live birth; O70.1 Second degree perineal laceration during delivery; O99.344 Other mental disorders complicating childbirth; F41.9 Anxiety disorder, unspecified; F31.9 Bipolar disorder, unspecified; O99.02 Anemia complicating childbirth; D64.9 Anemia, unspecified; Z3A.38 38 weeks gestation of pregnancy
CPT/HCPCS: 01967; 36415; 76816; 76819; 81003; 82565; 82570; 84112; 84156; 84450; 84460; 84520; 85018; 85025; 85027; 86592; 86850; 86900; 86901; 88307; 94761; A9270; J0665; J2795; J7120